=== PATIENT | male | born 1995 | race African-American/Black ===

== ENCOUNTER 2019-01-27 23:48 | Emergency (ER) | payer SELFPAY ==
[~2019-01-27] VITALS: Ht 170.2 cm; Wt 64.8 kg
[2019-01-28 01:08] LABS: CLARITY URINE CLEAR (CLEAR); COLOR URINE YELLOW (YELLOW); KETONES URINE NEGATIVE (NEGATIVE); LEUKOCYTE ESTERASE URINE NEGATIVE (NEGATIVE); NITRITE URINE NEGATIVE (NEGATIVE); OCCULT BLOOD URINE NEGATIVE (NEGATIVE); PH URINE 5.5 (4.5-8.0); PROTEIN URINE NEGATIVE (NEGATIVE); SPECIFIC GRAVITY URINE 1.004 (1.005-1.030); UROBILINOGEN URINE 0.2 E.U./dL (0.2-1.0)
[2019-01-28] MEDS ORDERED: ONDANSETRON 4MG ODT PO ONE (01:15)
[2019-01-28 01:16] LABS: *AMPHETAMINES SCREEN URINE NEGATIVE (NEGATIVE); *BARBITURATES SCREEN URINE NEGATIVE (NEGATIVE); *COCAINE SCREEN URINE NEGATIVE (NEGATIVE)
[2019-01-28 01:17] LABS: METHADONE URINE SCREEN NEGATIVE (NEGATIVE); OPIATES URINE SCREEN NEGATIVE (NEGATIVE); PHENCYCLIDINE URINE SCREEN NEGATIVE (NEGATIVE)
[2019-01-28 01:20] LABS: *BENZODIAZEPINES SCREEN URINE NEGATIVE (NEGATIVE); CANNABINOID URINE SCREEN NEGATIVE (NEGATIVE)
[2019-01-28 01:33] VITALS: BP 129/81
== END 2019-01-28 01:34 | disposition home or self-care (01) ==
LOC: ER 23:48
DX: K29.20 Alcoholic gastritis without bleeding (principal); F10.10 Alcohol abuse, uncomplicated; Y90.9 Presence of alcohol in blood, level not specified; F12.10 Cannabis abuse, uncomplicated; Z91.010 Allergy to peanuts
CPT/HCPCS: 80305; 82962; 99283